=== PATIENT | female | born 1980 | race Caucasian/White ===

== ENCOUNTER 2020-04-06 13:37 | Emergency (ER) | payer BC ==
[2020-04-06 13:49] VITALS: RESP 18
[2020-04-06] MEDS ORDERED: SODIUM CHLORIDE 0.9% 500 ML 500 ML IV ONE (14:15)
[2020-04-06 14:41] LABS: Basophils # (A) 0.1 k/uL (0-0.2); Basophils % (A) 1 %; Eosinophils # (A) 0.1 k/uL (0-0.7); Eosinophils % (A) 2 %; HCT 40.7 % (34.0-46.0); Lymphocytes # (A) 1.7 k/uL (1.0-4.8); Lymphocytes % (A) 25 %; MCH 29.5 pg (25.0-35.0); MCHC 34.2 g/dL (31.0-37.0); MCV 86.1 fL (80.0-100.0); Monocytes # (A) 0.4 k/uL (0-1.0); Monocytes % (A) 6 %; Neutrophils # (A) 4.4 k/uL (1.3-7.7); Neutrophils % (A) 65 %; Platelet Count 213 k/uL (150-450); RBC 4.73 m/uL (3.80-5.40); RDW 13.2 % (11.5-15.5); WBC 6.8 k/uL (3.8-10.6)
[2020-04-06 14:43] LABS: Appearance,Urine Clear (Clear); Bilirubin,Urine Negative (Negative); Blood,Urine Negative (Negative); Color,Urine Yellow; Glucose,Urine (UA) Negative (Negative); Ketones,Urine Negative (Negative); Leukocyte Esterase,Urine Negative (Negative); Nitrite,Urine Negative (Negative); PH, Urine 5.5 (5.0-8.0); Protein,Urine Trace (Negative); Specific Gravity,Urine 1.026 (1.001-1.035); Urobilinogen,Urine <2.0 mg/dL (<2.0)
[2020-04-06 14:49] LABS: ALT 25 U/L (4-34); AST 21 U/L (14-36); African American GFR (CKD) >90 (>60 ml/min/1.73 sqM); Albumin 3.9 g/dL (3.5-5.0); Alkaline Phosphatase 48 U/L (38-126); Amylase 63 U/L (30-110); Anion Gap 5 mmol/L; Blood Urea Nitrogen 19 mg/dL (7-17); Calcium 8.7 mg/dL (8.4-10.2); Carbon Dioxide 25 mmol/L (22-30); Chloride 107 mmol/L (98-107); Glucose 121 mg/dL (74-99); Lipase 120 U/L (23-300); Non-African American GFR(CKD) 89 (>60 ml/min/1.73 sqM); Potassium 4.1 mmol/L (3.5-5.1); Sodium 137 mmol/L (137-145); Total Bilirubin 0.3 mg/dL (0.2-1.3); Total Protein 6.6 g/dL (6.3-8.2)
[2020-04-06 15:52] VITALS: BP 124/69; PULSE 72; TEMP 98.1
--- NOTE | 2020-04-06 16:09 | CT ---
EXAMINATION TYPE: CT abdomen pelvis w con DATE OF EXAM: 04/06/2020 COMPARISON: None HISTORY: Right lower quadrant abdominal pain. CT DLP: 1901.6 mGycm Automated exposure control for dose reduction was used. CONTRAST: Performed with IV Contrast, patient injected with 100ml mL of Isovue 300. Images obtained from the diaphragm to the floor the pelvis with IV contrast. There is mild subsegmental atelectasis right posterior lung field. Heart size is normal. There is no pericardial effusion. Liver spleen pancreas gallbladder appear intact. Bile ducts are not dilated. There is hiatal hernia. Stomach is intact. There is no adrenal mass. Kidneys show satisfactory contrast opacification. There is no hydronephrosi s. Delayed images show normal renal excretion. There is no retroperitoneal adenopathy. Appendix is po sterior and appears normal. Bladder distends smoothly. Uterus is anteverted. There is no inguinal her rei. Lumbar vertebra have normal alignment. Disc spaces are normal. Posterior elements are intact. Th ere is no compression fracture. Bony pelvis is intact. There are bilateral multiple cysts on the ovar ies that measure up to 3.5 cm. There are a few sigmoid diverticula. There is no mesenteric edema. There is no ascites or free air. There is no bowel obstruction. IMPRESSION: Small hiatal hernia. Minimal sigmoid diverticulosis. No evidence of diverticulitis. Normal appendix. Bilateral multiple ovarian cysts.
--- NOTE | 2020-04-06 16:28 | ED ---
Abdominal Pain HPI - General Chief Complaint: Abdominal Pain Stated Complaint: abd pain Time Seen by Provider: 04/06/20 13:55 Source: patient Mode of arrival: ambulatory Limitations: no limitations - History of Present Illness Initial Comments: 39-year-old feel presenting today for chief complaint of twisting midline abdominal pain. states at times pain is in back. pt states that she has b/l lower abdominal twisting pain. she states this has happened before her periods in the past. she denies nausea, vomiting, diarrhea, fevers, upper abdominal pain, chest pain, dyspnea. pt denies vaginal discharge. pt denies . pt denies additional complaints. - Related Data Allergies Allergy/AdvReac Type Severity Reaction Status Date / Time No Known Allergies Allergy Verified 04/06/20 13:45 Review of Systems ROS Statement: Those systems with pertinent positive or pertinent negative responses have been documented in the HPI. ROS Other: All systems not noted in ROS Statement are negative. Past Medical History Past Medical History: GERD/Reflux History of Any Multi-Drug Resistant Organisms: None Reported Past Surgical History: No Surgical Hx Reported Past Psychological History: Anxiety Smoking Status: Former smoker Past Alcohol Use History: Occasional Past Drug Use History: None Reported General Exam - General Exam Comments Initial Comments: General: The patient is awake and alert, in no distress Eye: +3 mm pupils are equal, round and reactive to light, extra-ocular movements are intact. No nystagmus. There is normal conjunctiva bilaterally. No signs of icterus. Ears, nose, mouth and throat: There are moist mucous membranes and no oral lesions. Neck: The neck is supple, there is no tenderness or JVD. Cardiovascular: There is a regular rate and rhythm. No murmur, rub or gallop is appreciated. Respiratory: Lungs are clear to auscultation, respirations are non-labored, breath sounds are equal. No wheezes, stridor, rales, or rhonchi. Gastrointestinal: Soft, non-distended, mild b/l lower abdominal pain, increased at RLQ area, does not appear pelvic in nature, abdomen without masses or organomegaly noted. There is no rebound or guarding present. Musculoskeletal: Normal ROM, no tenderness. Strength 5/5. Sensation intact. Radial pulses equal bilaterally 2+. Neurological: A&O x 3. CN II-XII intact grossly, There are no obvious motor or sensory deficits. Coordination appears grossly intact. Speech is normal. Skin: Skin is warm and dry and no rashes or lesions are noted. Psychiatric: Cooperative, appropriate mood & affect, normal judgment. Limitations: no limitations Course Vital Signs 04/06/20 04/06/20 13:45 15:51 Temperature 98 F 98.1 F Pulse Rate 84 72 Respiratory 18 18 Rate Blood Pressure 129/65 124/69 O2 Sat by Pulse 97 100 Oximetry Medical Decision Making - Medical Decision Making 39yo female presenting for cc of her abdominal pain has happened in the past. This identical pain. CT negative for acute process small ovarian cyst at 3.5 cm noted. No inflammatory changes. Laboratory studies stable. At this time feel patient is stable for discharge with outpatient [employer] and GI follow-up patient is agreeable to this care plan discharge at this time. Dr Douglas agreeable to care plan. - Lab Data Result diagrams: 04/06/20 14:27 04/06/20 14:27 Lab Results 04/06/20 04/06/20 04/06/20 Range/Units 14:27 14:27 14:27 WBC 6.8 (3.8-10.6) k/uL RBC 4.73 (3.80-5.40) m/uL Hgb 14.0 (11.4-16.0) gm/dL Hct 40.7 (34.0-46.0) % MCV 86.1 (80.0-100.0) fL MCH 29.5 (25.0-35.0) pg MCHC 34.2 (31.0-37.0) g/dL RDW 13.2 (11.5-15.5) % Plt Count 213 (150-450) k/uL MPV 7.0 Neutrophils % 65 % Lymphocytes % 25 % Monocytes % 6 % Eosinophils % 2 % Basophils % 1 % Neutrophils # 4.4 (1.3-7.7) k/uL Lymphocytes # 1.7 (1.0-4.8) k/uL Monocytes # 0.4 (0-1.0) k/uL Eosinophils # 0.1 (0-0.7) k/uL Basophils # 0.1 (0-0.2) k/uL Sodium (137-145) mmol/L Potassium (3.5-5.1) mmol/L Chloride (98-107) mmol/L Carbon Dioxide (22-30) mmol/L Anion Gap mmol/L BUN (7-17) mg/dL Creatinine (0.52-1.04) mg/dL Est GFR (CKD-EPI)AfAm (>60 ml/min/1.73 sqM) Est GFR (CKD-EPI)NonAf (>60 ml/min/1.73 sqM) Glucose (74-99) mg/dL Calcium (8.4-10.2) mg/dL Total Bilirubin (0.2-1.3) mg/dL AST (14-36) U/L ALT (4-34) U/L Alkaline Phosphatase (38-126) U/L Total Protein (6.3-8.2) g/dL Albumin (3.5-5.0) g/dL Amylase (30-110) U/L Lipase (23-300) U/L Urine Color Yellow Urine Appearance Clear (Clear) Urine pH 5.5 (5.0-8.0) Ur Specific [place] 1.026 (1.001-1.035) Urine Protein Trace H (Negative) Urine Glucose (UA) Negative (Negative) Urine Ketones Negative (Negative) Urine Blood Negative (Negative) Urine Nitrite Negative (Negative) Urine Bilirubin Negative (Negative) Urine Urobilinogen <2.0 (<2.0) mg/dL Ur Leukocyte Esterase Negative (Negative) Urine HCG, Qual Not Detected (Not Detectd) 04/06/20 Range/Units 14:27 WBC (3.8-10.6) k/uL RBC (3.80-5.40) m/uL Hgb (11.4-16.0) gm/dL Hct (34.0-46.0) % MCV (80.0-100.0) fL MCH (25.0-35.0) pg MCHC (31.0-37.0) g/dL RDW (11.5-15.5) % Plt Count (150-450) k/uL MPV Neutrophils % % Lymphocytes % % Monocytes % % Eosinophils % % Basophils % % Neutrophils # (1.3-7.7) k/uL Lymphocytes # (1.0-4.8) k/uL Monocytes # (0-1.0) k/uL Eosinophils # (0-0.7) k/uL Basophils # (0-0.2) k/uL Sodium 137 (137-145) mmol/L Potassium 4.1 (3.5-5.1) mmol/L Chloride 107 (98-107) mmol/L Carbon Dioxide 25 (22-30) mmol/L Anion Gap 5 mmol/L BUN 19 H (7-17) mg/dL Creatinine 0.82 (0.52-1.04) mg/dL Est GFR (CKD-EPI)AfAm >90 (>60 ml/min/1.73 sqM) Est GFR (CKD-EPI)NonAf 89 (>60 ml/min/1.73 sqM) Glucose 121 H (74-99) mg/dL Calcium 8.7 (8.4-10.2) mg/dL Total Bilirubin 0.3 (0.2-1.3) mg/dL AST 21 (14-36) U/L ALT 25 (4-34) U/L Alkaline Phosphatase 48 (38-126) U/L Total Protein 6.6 (6.3-8.2) g/dL Albumin 3.9 (3.5-5.0) g/dL Amylase 63 (30-110) U/L Lipase 120 (23-300) U/L Urine Color Urine Appearance (Clear) Urine pH (5.0-8.0) Ur Specific [place] (1.001-1.035) Urine Protein (Negative) Urine Glucose (UA) (Negative) Urine Ketones (Negative) Urine Blood (Negative) Urine Nitrite (Negative) Urine Bilirubin (Negative) Urine Urobilinogen (<2.0) mg/dL Ur Leukocyte Esterase (Negative) Urine HCG, Qual (Not Detectd) Disposition Clinical Impression: Abdominal cramping, Ovarian cyst Disposition: HOME SELF-CARE Condition: Good Instructions (If sedation given, give patient instructions): Abdominal Pain (ED) Additional Instructions: Please use medication as discussed. Please follow-up with family doctor in the next 2 days.. Please return to emergency room if the symptoms increase or worsen or for any other concerns. Is patient prescribed a controlled substance at d/c from ED?: No Referrals: Leopoldo Lemos MD [Primary Care Provider] - 1-2 days Monico Che MD [STAFF PHYSICIAN] - 1-2 days Time of Disposition: 16:27
== END 2020-04-06 16:40 | disposition home or self-care (01) ==
LOC: EC 13:37
DX: N83.201 Unspecified ovarian cyst, right side (principal); N83.202 Unspecified ovarian cyst, left side; Z87.891 Personal history of nicotine dependence
CPT/HCPCS: 36415; 80053; 82150; 83690; 85025; 81003; 81025; 74177; 99284; 96360; Q9967

== ENCOUNTER → 2020-04-11 | Outpatient (CLI) | payer BC ==
--- NOTE | 2020-04-11 12:03 | US ---
EXAMINATION TYPE: US transvaginal DATE OF EXAM: 04/11/2020 COMPARISON: CLINICAL HISTORY: N83.[address] showed ovarian cysts. TECHNIQUE: Transvaginal (TV). Date of LMP: 03/21/2020, G0 EXAM MEASUREMENTS: Uterus: 9.6 x 4.7 x 4.5 cm Endometrial Stripe: 1.0 cm Right Ovary: 3.9 x 3.4 x 3.2 cm Left Ovary: 4.3 x 3.0 x 3.3 cm 1. Uterus: Anteverted Heterogenous 2. Endometrium: wnl 3. Right Ovary: cystic lesion visualized with septation and internal echoes= 3.3 x 2.8 x 2.9 cm 4. Left Ovary: simple cystic appearing lesion = 2.9 x 2.5 x 3.0 cm 5. Bilateral Adnexa: wnl 6. Posterior cul-de-sac: no free fluid IMPRESSION: 1. Ovarian cysts. This has complex on the right. Short-term follow-up in 6 weeks is recommended.
== END | disposition home or self-care (01) ==
LOC: RADUSWWP 09:03
PROVIDERS: ATTEND Family Medicine
DX: N83.201 Unspecified ovarian cyst, right side (principal); N83.202 Unspecified ovarian cyst, left side
CPT/HCPCS: 76830

== ENCOUNTER → 2020-05-28 | Outpatient (CLI) | payer BC ==
--- NOTE | 2020-05-28 18:41 | US ---
EXAMINATION TYPE: US transvaginal DATE OF EXAM: 05/28/2020 COMPARISON: 04/11/2020 CLINICAL HISTORY: 40-year-old female N83.291 Complex cyst of right ovary. Follow up ovarian lesion TECHNIQUE: Transvaginal (TV). Date of LMP: 05/14/2020, G0 FINDINGS: EXAM MEASUREMENTS: Uterus: 9.7 x 4.5 x 4.2 cm Endometrial Stripe: 1.3 cm Right Ovary: 4.6 x 3.3 x 3.2 cm, mildly enlarged with a volume of 25.7 mL. Left Ovary: 3.2 x 2.6 x 2.8 cm normal with a volume of 11.9 mL. 1. Uterus: Anteverted with a slightly heterogenous myometrium. Some fluid is seen along the endocer vical canal. 2. Endometrium: upper limits of normal in thickness 3. Right Ovary: cystic lesion with internal echoes visualized = 3.3 x 2.6 x 2.7 cm, possible small h emorrhagic cyst. This is not significantly changed in size as compared to 04/11/2020. The previously se en septation is no longer identified. 4. Left Ovary: A 2.1 cm dominant follicle is demonstrated. 5. Bilateral Adnexa: wnl 6. Posterior cul-de-sac: no free fluid IMPRESSION: 1. Endometrial stripe at the upper limits of normal at 1.3 cm. This should correspond to the secretor y phase of the menstrual cycle. We do note a small amount of fluid along the endocervical canal. 2. Right ovary mildly enlarged secondary to a 3.3 cm hypoechoic lesion, possible hemorrhagic cyst. Th is is not significantly changed in size as compared to 04/11/2020 though the previous internal septatio n is no longer identified. Additional follow-up in 3-6 months.
== END | disposition home or self-care (01) ==
LOC: RADUSWWP 15:35
PROVIDERS: ATTEND Family Medicine
DX: R93.89 Abnormal findings on diagnostic imaging of other specified body structures (principal); N88.8 Other specified noninflammatory disorders of cervix uteri; N83.8 Other noninflammatory disorders of ovary, fallopian tube and broad ligament
CPT/HCPCS: 76830